=== PATIENT | male | born 1970 | race Two or more races ===

== ENCOUNTER 2020-04-27 12:54 | Emergency (ER) | payer SELFPAY ==
[~2020-04-27] VITALS: Ht 170.2 cm; Wt 81.6 kg
--- NOTE | 2020-04-27 12:54 | NUR ---
PT BIBRA 77 FROM HOME C/O FENTANYL OD. PT IS AAOX4, NOT IN RESPIRATORY DISTRESS, HOOKED TO PRESIDING JUDGE, KEPT RESTED AND COMFORTABLE. WILL CONTINUE TO MONITOR.
--- NOTE | 2020-04-27 13:33 | NUR ---
Patient is eyes close but arousable he denies SI ,non discomfort @ this time ,blood draw obtained and send to lab ,hooked patient in the monitr ,gown will monitor .
[2020-04-27 13:44] LABS: BASOPHILS % (AUTO) 0.3 % (0.0-2.0); EOSINOPHILS % (AUTO) 0.6 % (0.0-6.0); HEMATOCRIT 44 % (39-51); HEMOGLOBIN 14.9 g/dL (13.5-17.5); LYMPHOCYTES # (AUTO) 0.6 /CMM (0.8-4.8); LYMPHOCYTES % (AUTO) 5.2 % (20.0-44.0); MEAN CORPUSCULAR HGB CONC 34 g/dl (31.0-36.0); MEAN CORPUSCULAR VOLUME 94 fL (80-96); MONOCYTES # (AUTO) 0.5 /CMM (0.1-1.30); MONOCYTES % (AUTO) 4.2 % (2.0-12.0); NEUTROPHILS # (AUTO) 10.3 /CMM (1.8-8.9); NEUTROPHILS % (AUTO) 89.7 % (43.0-81.0); PLATELET COUNT (AUTO) 262 /CMM (150-450); RED BLOOD CELL COUNT(AUTO) 4.69 MIL/uL (4.5-6.0); WHITE BLOOD COUNT (AUTO) 11.5 K/uL (4.3-11.0)
[2020-04-27] MEDS ORDERED: NALO1DIS2 IJ (13:46)
[2020-04-27 13:55] LABS: ALANINE AMINOTRANSFERASE 52 U/L (12-78); ALBUMIN 3.8 g/dL (3.4-5.0); ALCOHOL, BLOOD < 3 mg/dL (0-0); ALKALINE PHOSPHATASE 64 U/L (46-116); ASPARTATE AMINOTRANSFERASE 54 U/L (15-37); BILIRUBIN,DIRECT 0.1 mg/dL (0.0-0.2); BILIRUBIN,TOTAL 0.6 mg/dL (0.2-1.0); CALCIUM, SERUM 8.7 mg/dL (8.5-10.1); CARBON DIOXIDE 28 mmol/L (21-32); CHLORIDE 99 mmol/L (98-107); CREATININE 1.8 mg/dL (0.6-1.3); GLUCOSE 298 mg/dL (74-106); POTASSIUM 3.7 mmol/L (3.5-5.1); SODIUM SERUM 140 mmol/L (136-145); TOTAL PROTEIN, SERUM 7.2 g/dL (6.4-8.2); UREA NITROGEN, BLOOD 19 mg/dL (7-18)
[2020-04-27 14:05] LABS: ACETAMINOPHEN < 2 ug/ml (10-30)
--- NOTE | 2020-04-27 18:49 | NUR ---
Patient eyes close arousable vitals taken ,will continue to monitor .
--- NOTE | 2020-04-27 19:10 | NUR ---
Transfer care report to [facility]ta[facility] Cuevas .
--- NOTE | 2020-04-27 19:22 | NUR ---
IV removed. Catheter intact and site benign. Pressure and 4x4 applied to site. No bleeding noted.
--- NOTE | 2020-04-27 19:22 | NUR ---
SPOKE TO PT, PT AAOX4. AWAKE AND ALERT. PT REQUESTED TO BE DISCHARGED. ER MD AWARE.
--- NOTE | 2020-04-27 19:29 | NUR ---
Patient discharged to home in stable condition. Written and verbal after care instructions given. Patient verbalizes understanding of instruction and RX. Pt ambulated out of ED.VSS.
[2020-04-27 19:30] VITALS: BP 122/69
== END 2020-04-27 19:57 | disposition home or self-care (01) ==
LOC: ER 13:10 → EDBD 13:10 → ER 19:57
DX: T40.411A Poisoning by fentanyl or fentanyl analogs, accidental (unintentional), initial encounter (principal); R94.31 Abnormal electrocardiogram [ECG] [EKG]; Y92.89 Other specified places as the place of occurrence of the external cause
CPT/HCPCS: 36415; 71045-TC; 80048-TC; 80076-TC; 84484-TC; 85025-TC; G0480